=== PATIENT | female | born 1960 | race Caucasian/White ===

== ENCOUNTER 2017-11-23 11:31 | Day surgery (SDC) | payer MEDICAID ==
[~2017-11-23] VITALS: Ht 157.5 cm; Wt 35.2 kg
[2017-11-23 12:15] VITALS: BP 129/83
[2017-11-23] MEDS ORDERED: SODIUM CHLORIDE 0.9% 1,000 ML IV SCH (12:16)
[2017-11-23] MEDS ORDERED: PLEASE ENTER ALLERGIES MC SCH (12:30)
[2017-11-23] MEDS ORDERED: NALOXONE 1 MG/ML, 2ML ONE (12:41)
[2017-11-23] MEDS ORDERED: FENTANYL PF 100 MCG/2ML ONE (12:41)
[2017-11-23] MEDS ORDERED: MIDAZOLAM 1 MG/ML, 5ML ONE (12:41)
[2017-11-23] MEDS ORDERED: FLUMAZENIL 0.1 MG/1 ML, 5ML ONE (12:41)
[2017-11-23] MEDS ORDERED: LIDOCAINE-MPF 2%, 2ML ONE (13:14)
[2017-11-23] MEDS ORDERED: VISIPAQUE 270 MG/ML, 150ML BOTTLE ONE (13:30)
[2017-11-23 19:05] VITALS: BP 97/68
== END 2017-11-23 22:30 | disposition home or self-care (01) ==
LOC: RAD 11:31 → 4NOR 15:16 → RAD 22:30
PROVIDERS: ATTEND Orthopaedic Surgery
DX: I70.208 Unspecified atherosclerosis of native arteries of extremities, other extremity (principal); Q27.8 Other specified congenital malformations of peripheral vascular system; J44.9 Chronic obstructive pulmonary disease, unspecified; Z79.899 Other long term (current) drug therapy
CPT/HCPCS: 36215; 75710; 99156; 99157; C1751; J2250; J3010; J3490; Q9966; J2310

== ENCOUNTER 2019-01-19 16:31 | Emergency (ER) | payer MEDICAID ==
[~2019-01-19] VITALS: Ht 154.9 cm; Wt 39.5 kg
--- NOTE | 2019-01-19 16:42 | NUR ---
PT HERE TODAY FOR BRONCHITIS- SENT BY [facility], [facility]. PT STATES SHE HAS HAD A COUGH (NORMAL) THAT HAS BEEN WORSE THE LAST FEW DAYS WITH GREEN PLEHGM. PT HAS HX COPD WITH CHRONIC O2 USE @2L. PT STATES SHE HAS BEEN FALLING A LOT DUE TO WEAKNESS AND HAS BEEN SEEN AT ANOTHER ER FOR CHRONIC COMPRESSION FRACTURES IN BACK- PT STATES BACK IS A 10/10 PAIN AT THIS TIME. PT CURRENTLY RESTING ON GURNEY. CHANGED INTO GOWN. VSS. COUGHING OCCASIONALLY. AGNIESZKA. DENIES CP.
[2019-01-19] MEDS ORDERED: GABAPENTIN (16:49)
[2019-01-19] MEDS ORDERED: BENZ-17 PO (16:49)
[2019-01-19] MEDS ORDERED: ONDA4TAB7 PO (16:49)
[2019-01-19] MEDS ORDERED: FLUT1AER INH (16:49)
[2019-01-19] MEDS ORDERED: QUET50TA5 PO (16:49)
[2019-01-19] MEDS ORDERED: VALIUM (16:49)
[2019-01-19] MEDS ORDERED: ESOM20CA PO (16:49)
[2019-01-19] MEDS ORDERED: ALBU0.63 NEB (16:49)
[2019-01-19] MEDS ORDERED: TYLENOL PO (16:49)
[2019-01-19] MEDS ORDERED: GUAI400T66 PO (16:49)
[2019-01-19] MEDS ORDERED: LIDOCAINE PATCH (16:49)
[2019-01-19] MEDS ORDERED: LORA10CA PO (16:49)
[2019-01-19] MEDS ORDERED: QUET200T4 PO (16:49)
[2019-01-19] MEDS ORDERED: NIFE10CA49 PO (16:49)
--- NOTE | 2019-01-19 16:49 | NUR ---
PA AT BEDSIDE TO ASSESS PT NOW.
[2019-01-19] MEDS ORDERED: ACETAMINOPHEN 500 MG TABLET ONE (17:23)
--- NOTE | 2019-01-19 17:25 | NUR ---
PT REQUESTING PAIN MEDICATON- PA ALERTED. PT MEDICATED PER EMAR. STATES "I AM NOT DOING ANY SCANS UNTIL I AM PAIN FREE. TYLENOL DOES NOTHING FOR ME. I SHOULD HAVE GONE TO [facility] WHERE I COULD GET KETAMINE." LAB AT BEDSIDE NOW.
--- NOTE | 2019-01-19 17:26 | NUR ---
PT REFUSING STRAIGHT CATH. BSC PLACED AT BEDSIDE SO PT CAN COLLECT URINE SAMPLE. WILL HELP PT TO BSC WHEN LAB IS FINISHED COLLECTING BLOOD.
[2019-01-19] MEDS ORDERED: ACETAMINOPHEN 500 MG TABLET PO ONE (17:30)
--- NOTE | 2019-01-19 17:37 | NUR ---
BLADDER SCAN PERFORMED- 123 ML IN BLADDER. THIS RN ASKED PT TO PROVIDE SAMPLE. PT STATES "I'M NOT PEEING IN A CUP. I WANT TO WALK TO THE BATHROOM AND JUST PEE LIKE A HUMAN." WILL INFORM MD/PA. PT ANGRY STATING, "YOU DON'T CARE ABOUT MY PAIN."
[2019-01-19 17:45] LABS: ALANINE AMINOTRANSFERASE 17 U/L (12-78); ALBUMIN 3.2 g/dL (3.4-5.0); ANION GAP 6 mmol/L (5-15); CALCIUM 8.6 mg/dL (8.5-10.1); CHLORIDE 102 mmol/L (98-107); CREATININE 0.48 mg/dL (0.55-1.02)
--- NOTE | 2019-01-19 17:45 | NUR ---
PT WAS FOUND UP OUT OF BED SHUTTING THE DOOR. NOW BACK ON [facility]. STATES SHE CANNOT FIND A COMFORTABLE POSITION. PROVIDED WITH ANOTHER BLANKET. HELPED TO REPOSITION. VSS.
[2019-01-19 17:47] LABS: ALKALINE PHOSPHATASE 127 U/L (45-117); BILIRUBIN,TOTAL 0.3 mg/dL (0.2-1.0)
--- NOTE | 2019-01-19 17:52 | NUR ---
PT TO CT NOW.
[2019-01-19 18:07] LABS: BASOPHILS % (AUTO) 1 % (0-1); EOSINOPHILS # (AUTO) 0.23 x10^3/uL (0-0.4); EOSINOPHILS % (AUTO) 2 % (1-7); LYMPHOCYTES # (AUTO) 1.79 x10^3/uL (1-3.4); LYMPHOCYTES % (AUTO) 18 % (22-44); MD NO; MEAN CORPUSCULAR HEMOGLOBIN 32.9 pg (27.0-34.8); MEAN CORPUSCULAR HGB CONC 32.9 g/dL (32.4-35.8); MEAN PLATELET VOLUME 8.6 fL (7.4-10.4); MONOCYTES # (AUTO) 1.36 x10^3/uL (0.2-0.8); MONOCYTES % (AUTO) 14 % (2-9); NEUTROPHILS # (AUTO) 6.62 x10^3/uL (1.8-6.8); NEUTROPHILS % (AUTO) 66 % (42-75); PLATELET COUNT 338 x10^3/uL (130-400); RED BLOOD COUNT 3.72 x10^6/uL (3.82-5.3); RED CELL DISTRIBUTION WIDTH 12.7 % (9.6-15.2)
--- NOTE | 2019-01-19 18:37 | NUR ---
PT BACK IN ROOM RESTING ON [place]. CONNECTED TO MONITOR. NADN. REQUESTING TO SPEAK WITH [employer].
--- NOTE | 2019-01-19 18:53 | NUR ---
REPORT TO AUDREY CARVAJAL
[2019-01-19 19:05] LABS: TROPONIN I < 0.015 ng/mL (0.000-0.045)
--- NOTE | 2019-01-19 19:28 | NUR ---
PT RESTING IN BED. PT UPSET, STATED, "I DON'T EVEN KNOW WHY I CAME HERE, I CAN TAKE TYLENOL AT HOME, I CAN GET DRUGS AT HOME. YOU ALL AREN'T DOING ANYTHING FOR ME, THIS IS SO FUCKING STUPID". NEW SET OF VITALS OBTAINED, WILL CONTINUE TO MONITOR.
--- NOTE | 2019-01-19 19:29 | NUR ---
PT REFUSING TO GIVE URINE, PT STATED, "YOU DON'T NEED MY FUCKIN URINE". WILL INFORM ERP.
[2019-01-19 19:43] VITALS: BP 115/73
[2019-01-19 20:14] LABS: MICROSCOPIC NOT IND
[2019-01-19 20:22] LABS: CULTURE INDICATED? NO
== END 2019-01-19 19:45 | disposition home or self-care (01) ==
LOC: ED 19:39
DX: G89.11 Acute pain due to trauma (principal); M54.9 Dorsalgia, unspecified; R05 Cough; J44.9 Chronic obstructive pulmonary disease, unspecified
CPT/HCPCS: 36415; 71045; 72131; 72190; 80053; 81003; 84484; 85025; 93005; 99284